=== PATIENT | female | born 1970 | race Two or more races ===

== ENCOUNTER 2019-06-26 23:00 | Inpatient (IN) | payer OTHER ==
[~2019-06-26] VITALS: Ht 165.1 cm; Wt 91.6 kg
[2019-06-26] MEDS ORDERED: FLUO10CA23 PO (23:12)
[2019-06-26] MEDS ORDERED: ALBU0.212 NEB (23:12)
[2019-06-26] MEDS ORDERED: LORA-703 PO (23:12)
[2019-06-26] MEDS ORDERED: IPRATROPIUM BROMIDE 0.5 MG/2.5 ML NEB SOLUTION NEB ONE (23:15)
[2019-06-26] MEDS ORDERED: ALBUTEROL SULFATE 2.5 MG/0.5 ML NEB SOLUTION NEB ONE (23:15)
[2019-06-26] MEDS ORDERED: 0.9% SODIUM CHLORIDE 5 ML NEB SOLUTION NEB ONE (23:29)
[2019-06-27 00:34] LABS: BASOPHILS % (AUTO) 0.5 % (0.0-2.0); EOSINOPHILS % (AUTO) 7.8 % (1.0-6.0); HEMATOCRIT 41.8 % (36-46); HEMOGLOBIN 13.7 g/dL (12.0-16.0); LYMPHOCYTES # (AUTO) 6.5 K/uL (1.0-4.8); LYMPHOCYTES % (AUTO) 36.6 % (22.0-44.0); MEAN CORPUSCULAR HEMOGLOBIN 27.3 pg (26.0-34.0); MEAN CORPUSCULAR HGB CONC 32.8 G/dL (31.0-37.0); MEAN CORPUSCULAR VOLUME 83 fL (80-100); MONOCYTES % (AUTO) 5.5 % (2.0-9.0); NEUTROPHILS # (AUTO) 8.7 K/uL (1.8-7.7); NEUTROPHILS % (AUTO) 49.6 % (40.0-70.0); PLATELET COUNT (AUTO) 317 K/uL (150-450); RED BLOOD CELL COUNT(AUTO) 5.02 MIL/uL (4.00-5.20); RED CELL DISTRIBUTION WIDTH 13.3 % (11.5-14.5)
[2019-06-27 00:44] LABS: ANION GAP 6 mmol/L (8-16); CALCIUM, TOTAL 8.7 mg/dL (8.8-10.5); CARBON DIOXIDE 28 mmol/L (22-29); CHLORIDE 104 mmol/L (98-107); CREATININE 0.87 mg/dL (0.60-1.30); GLOMERULAR FILTR. RATE CALC > 60 mL/min (>60); GLUCOSE,RANDOM 149 mg/dL (70-110); POTASSIUM 3.8 mmol/L (3.5-5.1); SODIUM SERUM 138 mmol/L (136-145); UREA NITROGEN, BLOOD 16 mg/dL (7-18)
[2019-06-27 00:48] LABS: D-DIMER 1.61 mg/L FEU (0.00-0.50); PROTHROMBIN TIME 10.1 SEC (9.4-11.6)
[2019-06-27 00:50] LABS: ALANINE AMINOTRANSFERASE 23 U/L (12-78); ALBUMIN 3.3 g/dL (3.4-5.0); ALKALINE PHOSPHATASE 66 U/L (46-116); ASPARTATE AMINOTRANSFERASE 16 U/L (15-37); BILIRUBIN,TOTAL 0.3 mg/dL (0.1-1.0); CREATINE KINASE, TOTAL ONLY 47 U/L (26-192); TOTAL PROTEIN, SERUM 7.1 g/dL (6.4-8.2)
[2019-06-27 00:52] LABS: B-TYPE NATRIURETIC PEPTIDE < 5 pg/mL (0-100)
[2019-06-27 01:12] LABS: INFLUENZA TYPE A NEGATIVE FOR TYPE A (NEGATIVE); INFLUENZA TYPE B NEGATIVE FOR TYPE B (NEGATIVE)
[2019-06-27] MEDS ORDERED: SODIUM CHLORIDE 0.9% 100 ML ONE (01:34)
[2019-06-27] MEDS ORDERED: IOVERSOL 350 MG/ML 100 ML VIAL ONE (01:34)
[2019-06-27] MEDS ORDERED: NITROGLYCERIN 0.4 MG SUBLINGUAL TABLET #25 SL ONE (02:45)
[2019-06-27] MEDS ORDERED: 0.9% SODIUM CHLORIDE 10 ML SYRINGE IVP PRN (03:15)
[2019-06-27] MEDS ORDERED: ACETAMINOPHEN 325 MG TABLET PO PRN (03:15)
[2019-06-27] MEDS ORDERED: ONDANSETRON HCL 4 MG/2 ML VIAL IVP PRN (03:15)
[2019-06-27] MEDS ORDERED: ALBUTEROL SULFATE 2.5 MG/0.5 ML NEB SOLUTION NEB PRN (05:00)
[2019-06-27] MEDS: CefTRIAXone 1 GM/DEXTROSE 50 ML IV SCH (05:56)
[2019-06-27] MEDS: MethylPREDNISolone SOD SUCC 125 MG/2 ML VIAL IVP SCH ×2 (07:23→18:17)
[2019-06-27] MEDS: FAMOTIDINE 10 MG/ML 2 ML VIAL IVP SCH (07:23)
[2019-06-27] MEDS: ALBUTEROL SULFATE 2.5 MG/0.5 ML NEB SOLUTION NEB SCH ×3 (08:00→20:44)
[2019-06-27] MEDS: IPRATROPIUM BROMIDE 0.5 MG/2.5 ML NEB SOLUTION NEB SCH ×3 (08:00→20:45)
[2019-06-27] MEDS ORDERED: FLUoxetine HCL 10 MG CAPSULE PO SCH (09:00)
[2019-06-27] MEDS: FLUoxetine HCL 10 MG CAPSULE PO SCH (09:00)
[2019-06-27 17:00] VITALS: BP 132/78
[2019-06-27] MEDS ORDERED: PNEUMOCOCCAL VACCINE POLYVALENT 0.5 ML VIAL [PPSV23] IM ONE (18:45)
[2019-06-27] MEDS ORDERED: INFLUENZA VIRUS VACCINE QVS 2019-20 (3YR+)/PF 60 MCG/0.5 ML SYRINGE IM ONE (18:45)
[2019-06-27 20:29] VITALS: BP 124/73
[2019-06-28] MEDS: MethylPREDNISolone SOD SUCC 125 MG/2 ML VIAL IVP SCH ×3 (00:37→16:53)
[2019-06-28 01:13] VITALS: BP 126/72
[2019-06-28] MEDS: ALBUTEROL SULFATE 2.5 MG/0.5 ML NEB SOLUTION NEB SCH ×4 (03:10→20:00)
[2019-06-28] MEDS: IPRATROPIUM BROMIDE 0.5 MG/2.5 ML NEB SOLUTION NEB SCH ×4 (03:10→20:00)
[2019-06-28] MEDS ORDERED: SODIUM CHLORIDE 0.9% 100 ML ONE (05:07)
[2019-06-28 05:14] VITALS: BP 122/71
[2019-06-28] MEDS: CefTRIAXone 1 GM/DEXTROSE 50 ML IV SCH (05:51)
[2019-06-28 08:38] VITALS: BP 118/84
[2019-06-28] MEDS: FAMOTIDINE 10 MG/ML 2 ML VIAL IVP SCH (09:09)
[2019-06-28] MEDS: FLUoxetine HCL 10 MG CAPSULE PO SCH (09:09)
[2019-06-28] MEDS: BENZONATATE 100 MG CAPSULE PO SCH ×2 (10:20→16:53)
[2019-06-28 15:20] VITALS: BP 146/72
[2019-06-28 19:43] VITALS: BP 137/80
[2019-06-29] VITALS (7 sets, daily range): BP systolic 98–134; BP diastolic 61–86
[2019-06-29] MEDS: MethylPREDNISolone SOD SUCC 125 MG/2 ML VIAL IVP SCH (00:05)
[2019-06-29] MEDS: BENZONATATE 100 MG CAPSULE PO SCH ×4 (00:05→23:19)
[2019-06-29] MEDS: IPRATROPIUM BROMIDE 0.5 MG/2.5 ML NEB SOLUTION NEB SCH ×4 (02:00→19:49)
[2019-06-29] MEDS: ALBUTEROL SULFATE 2.5 MG/0.5 ML NEB SOLUTION NEB SCH ×4 (02:00→19:49)
[2019-06-29] MEDS: CefTRIAXone 1 GM/DEXTROSE 50 ML IV SCH (05:18)
[2019-06-29 06:49] LABS: HEMOGLOBIN 12.7 g/dL (12.0-16.0); MEAN CORPUSCULAR HEMOGLOBIN 27.8 pg (26.0-34.0); MEAN CORPUSCULAR HGB CONC 33.3 G/dL (31.0-37.0); MEAN CORPUSCULAR VOLUME 84 fL (80-100); PLATELET COUNT (AUTO) 330 K/uL (150-450); RED BLOOD CELL COUNT(AUTO) 4.56 MIL/uL (4.00-5.20); RED CELL DISTRIBUTION WIDTH 13.9 % (11.5-14.5)
[2019-06-29 07:07] LABS: CALCIUM, TOTAL 9.2 mg/dL (8.8-10.5); POTASSIUM 4.2 mmol/L (3.5-5.1)
[2019-06-29] MEDS: FAMOTIDINE 10 MG/ML 2 ML VIAL IVP SCH (08:31)
[2019-06-29] MEDS: FLUoxetine HCL 10 MG CAPSULE PO SCH (08:31)
[2019-06-29 08:34] LABS: BAND NEUTROPHILS % (MANUAL) 2 % (0-5); LYMPHOCYTES % (MANUAL) 7 % (22-44); MONOCYTES % (MANUAL) 2 % (2-9); SEGMENTED NEUTROPHILS % 89 % (40-70)
[2019-06-29 13:36] LABS: THYROID STIMULATING HORMONE 0.26 uIU/mL (0.36-3.74)
[2019-06-29] MEDS: BUDESONIDE 0.5 MG/2 ML NEB SOLUTION NEB SCH (19:55)
[2019-06-30] MEDS: IPRATROPIUM BROMIDE 0.5 MG/2.5 ML NEB SOLUTION NEB SCH ×4 (02:59→21:23)
[2019-06-30] MEDS: ALBUTEROL SULFATE 2.5 MG/0.5 ML NEB SOLUTION NEB SCH ×4 (02:59→21:23)
[2019-06-30 04:28] VITALS: BP 122/77
[2019-06-30] MEDS: CefTRIAXone 1 GM/DEXTROSE 50 ML IV SCH (05:40)
[2019-06-30 07:39] VITALS: BP 124/76
[2019-06-30 07:44] LABS: BASOPHILS % (AUTO) 0.6 % (0.0-2.0); EOSINOPHILS % (AUTO) 0.3 % (1.0-6.0); HEMATOCRIT 36.2 % (36-46); HEMOGLOBIN 12.2 g/dL (12.0-16.0); LYMPHOCYTES # (AUTO) 5.2 K/uL (1.0-4.8); LYMPHOCYTES % (AUTO) 25.9 % (22.0-44.0); MEAN CORPUSCULAR HEMOGLOBIN 28.1 pg (26.0-34.0); MEAN CORPUSCULAR HGB CONC 33.8 G/dL (31.0-37.0); MEAN CORPUSCULAR VOLUME 83 fL (80-100); MONOCYTES # (AUTO) 1.1 K/uL (0.1-1.0); MONOCYTES % (AUTO) 5.3 % (2.0-9.0); NEUTROPHILS # (AUTO) 13.7 K/uL (1.8-7.7); NEUTROPHILS % (AUTO) 67.9 % (40.0-70.0); PLATELET COUNT (AUTO) 298 K/uL (150-450); RED BLOOD CELL COUNT(AUTO) 4.35 MIL/uL (4.00-5.20); RED CELL DISTRIBUTION WIDTH 13.4 % (11.5-14.5)
[2019-06-30 07:56] LABS: ANION GAP 11 mmol/L (8-16); CALCIUM, TOTAL 8.6 mg/dL (8.8-10.5); CARBON DIOXIDE 25 mmol/L (22-29); CHLORIDE 102 mmol/L (98-107); CREATININE 0.87 mg/dL (0.60-1.30); GLOMERULAR FILTR. RATE CALC > 60 mL/min (>60); GLUCOSE,RANDOM 155 mg/dL (70-110); POTASSIUM 3.5 mmol/L (3.5-5.1); SODIUM SERUM 138 mmol/L (136-145); UREA NITROGEN, BLOOD 20 mg/dL (7-18)
[2019-06-30] MEDS: FLUoxetine HCL 10 MG CAPSULE PO SCH (08:15)
[2019-06-30] MEDS: FAMOTIDINE 10 MG/ML 2 ML VIAL IVP SCH (08:16)
[2019-06-30] MEDS: BENZONATATE 100 MG CAPSULE PO SCH ×3 (08:17→23:19)
[2019-06-30] MEDS: BUDESONIDE 0.5 MG/2 ML NEB SOLUTION NEB SCH ×2 (08:54→21:23)
[2019-06-30 11:15] VITALS: BP 112/70
[2019-06-30 16:38] VITALS: BP 102/69
[2019-06-30 20:20] VITALS: BP 109/71
[2019-07-01 00:34] VITALS: BP 100/65
[2019-07-01] MEDS: ALBUTEROL SULFATE 2.5 MG/0.5 ML NEB SOLUTION NEB SCH ×3 (02:12→14:44)
[2019-07-01] MEDS: IPRATROPIUM BROMIDE 0.5 MG/2.5 ML NEB SOLUTION NEB SCH ×3 (02:12→14:44)
[2019-07-01 04:51] VITALS: BP 103/67
[2019-07-01] MEDS: CefTRIAXone 1 GM/DEXTROSE 50 ML IV SCH (05:52)
[2019-07-01 07:00] LABS: BASOPHILS % (AUTO) 0.2 % (0.0-2.0); EOSINOPHILS % (AUTO) 7.1 % (1.0-6.0); HEMATOCRIT 37.1 % (36-46); HEMOGLOBIN 12.4 g/dL (12.0-16.0); LYMPHOCYTES # (AUTO) 6.2 K/uL (1.0-4.8); LYMPHOCYTES % (AUTO) 45.7 % (22.0-44.0); MEAN CORPUSCULAR HGB CONC 33.4 G/dL (31.0-37.0); MEAN CORPUSCULAR VOLUME 84 fL (80-100); MONOCYTES # (AUTO) 0.8 K/uL (0.1-1.0); MONOCYTES % (AUTO) 6.1 % (2.0-9.0); NEUTROPHILS # (AUTO) 5.5 K/uL (1.8-7.7); NEUTROPHILS % (AUTO) 40.9 % (40.0-70.0); PLATELET COUNT (AUTO) 279 K/uL (150-450); RED BLOOD CELL COUNT(AUTO) 4.42 MIL/uL (4.00-5.20); RED CELL DISTRIBUTION WIDTH 13.6 % (11.5-14.5)
[2019-07-01] MEDS: FAMOTIDINE 10 MG/ML 2 ML VIAL IVP SCH (08:13)
[2019-07-01] MEDS: BENZONATATE 100 MG CAPSULE PO SCH (08:13)
[2019-07-01] MEDS: FLUoxetine HCL 10 MG CAPSULE PO SCH (08:13)
[2019-07-01] MEDS: BUDESONIDE 0.5 MG/2 ML NEB SOLUTION NEB SCH (08:18)
[2019-07-01 08:31] VITALS: BP 113/78
[2019-07-01 11:40] VITALS: BP 108/80
== END 2019-07-01 17:43 | disposition home or self-care (01) | DRG 140 ==
LOC: EMS 23:02 → 5N 06-27 16:14 → UNDOADMIN 06-27 16:14 → 5S 06-27 16:14
PROVIDERS: ADMIT Internal Medicine; ATTEND Internal Medicine
PROC: 3E02340 Introduction of Influenza Vaccine into Muscle, Percutaneous Approach (ICD-10-PCS; principal; 2019-07-01)
PROC: 3E0234Z Introduction of Serum, Toxoid and Vaccine into Muscle, Percutaneous Approach (ICD-10-PCS; 2019-07-01)
DX: J44.1 Chronic obstructive pulmonary disease with (acute) exacerbation (principal); J96.00 Acute respiratory failure, unspecified whether with hypoxia or hypercapnia; J45.901 Unspecified asthma with (acute) exacerbation; J20.9 Acute bronchitis, unspecified; J44.0 Chronic obstructive pulmonary disease with (acute) lower respiratory infection; T38.0X5A Adverse effect of glucocorticoids and synthetic analogues, initial encounter; E04.1 Nontoxic single thyroid nodule; E66.9 Obesity, unspecified; Z68.33 Body mass index [BMI] 33.0-33.9, adult; F32.9 Major depressive disorder, single episode, unspecified; Z23 Encounter for immunization; Y92.89 Other specified places as the place of occurrence of the external cause
CPT/HCPCS: 71275; 84443; 85379; 87804; 90686; 90732; 93005; 94640; J0696; J2930; J3490; J7050

== ENCOUNTER 2024-12-13 11:24 | Emergency (ER) | payer OTHER ==
[~2024-12-13] VITALS: Ht 162.6 cm; Wt 73.6 kg
[~2024-12-13 11:24] MED LIST: ALBU0.212 NEB; FLUO-351 PO
[2024-12-13] MEDS: MORPHINE SULFATE 4 MG/ML SYRINGE IM ONE (12:51)
[2024-12-13] MEDS: ONDANSETRON HCL 4 MG/2 ML VIAL IM ONE (12:51)
[2024-12-13 14:39] VITALS: BP 130/93; PULSE 104; RESP 17; TEMP 98.5; O2SAT 98
[2024-12-13] MEDS ORDERED: HYDR-4062 PO (14:40)
== END 2024-12-13 16:54 | disposition home or self-care (01) ==
LOC: EMS 11:25
DX: S42.002A Fracture of unspecified part of left clavicle, initial encounter for closed fracture (principal); S43.102A Unspecified dislocation of left acromioclavicular joint, initial encounter; J45.909 Unspecified asthma, uncomplicated; Z79.899 Other long term (current) drug therapy; W01.0XXA Fall on same level from slipping, tripping and stumbling without subsequent striking against object, initial encounter; Y93.89 Activity, other specified; Y92.89 Other specified places as the place of occurrence of the external cause; Y99.8 Other external cause status
CPT/HCPCS: 99284; 29105; 73030; 73060; 96372; J2270; J2405